=== PATIENT | female | born 1950 | race African-American/Black ===

== ENCOUNTER 2017-07-23 11:19 | Inpatient (IN) ==
[2017-07-23 12:08] LABS: Basophils # 0.1 10*3/uL (0.0-0.2); Basophils % 1.4 % (0.0-0.8); Eosinophils # 0.1 10*3/uL (0.0-0.87); Hematocrit 40.2 VOL% (35.7-47.0); Immature Granulocytes % 0.2 %; Immature Granulocytes Absolute 0.01 #; Lymphocytes # 0.8 10*3/uL (1.4-4.0); Lymphocytes % 15.3 % (21.3-54.2); Mean Corpuscular HGB Conc 32.3 GM/DL (32-36); Mean Corpuscular Hemoglobin 30 PG (27-34); Mean Corpuscular Volume 93.9 FL (87-102); Mean Platelet Volume 12.9 FL (9.6-12.0); Monocytes # 0.4 10*3/uL (0.11-0.8); Neutrophils # 3.7 10*3/uL (1.4-7.4); Neutrophils % 74.1 % (38.7-73.9); Platelet Count 166 T/CUMM (130-400); Red Blood Count 4.28 MC/CUMM (3.8-5.5); Red Cell Distribution Width 15.5 % (9.3-17.3)
[2017-07-23 12:13] LABS: PT Patient Result 10.5 SECS; Partial Thromboplastin Time 21.4 SECS (0-40)
[2017-07-23 12:32] LABS: Alanine Aminotransferase 13 U/L (13-56); Albumin 3.8 G/DL (3.4-5.0); Alkaline Phosphatase 101 U/L (45-117); Aspartate Amino Transferase 28 U/L (0-37); Blood Urea Nitrogen 10 MG/DL (7-18); Calcium 9.9 MG/DL (8.5-10.1); Glucose 74 MG/DL (74-106); Osmolality,Calculated 265.2 MOS/KG (273-304); Sodium 134 MMOL/L (136-145); Total Protein 9.7 G/DL (6.4-8.3); Troponin I Only 0.022 NG/ML (0.00-0.045)
[2017-07-23 12:36] LABS: Potassium 3.9 MMOL/L (3.5-5.1)
[2017-07-23] MEDS ORDERED: DEXTROSE 50% 25 GM/50 ML VIAL IV PRN (15:59)
[2017-07-23] MEDS ORDERED: GLUCAGON 1 MG VIAL IM PRN (15:59)
[2017-07-23] MEDS: SEVELAMER CARBONATE 800 MG TABLET PO SCH (17:49)
[2017-07-23] MEDS: CALCIUM ACETATE 667 MG CAPSULE PO SCH (17:49)
[2017-07-23] MEDS: METOCLOPRAMIDE 5 MG TABLET PO SCH (21:40)
[2017-07-24] MEDS ORDERED: CALCIUM ACETATE 667 MG CAPSULE PO SCH (08:00)
[2017-07-24] MEDS ORDERED: SEVELAMER CARBONATE 800 MG TABLET PO SCH (08:00)
[2017-07-24] MEDS: METOCLOPRAMIDE 5 MG TABLET PO SCH ×4 (08:33→20:48)
[2017-07-24] MEDS: IRBESARTAN 150 MG TABLET PO SCH ×2 (08:33→12:41)
[2017-07-24] MEDS: CALCIUM ACETATE 667 MG CAPSULE PO SCH ×3 (08:33→17:08)
[2017-07-24] MEDS: SEVELAMER CARBONATE 800 MG TABLET PO SCH ×3 (08:33→17:08)
[2017-07-24] MEDS: ASPIRIN EC 81 MG TABLET PO SCH ×2 (08:33→12:43)
[2017-07-24] MEDS: amLODIPine 5 MG TABLET PO SCH ×2 (08:34→12:42)
[2017-07-24] MEDS: GABAPENTIN 100 MG CAPSULE PO SCH ×2 (08:34→12:42)
[2017-07-24 11:29] LABS: Basophils # 0.1 10*3/uL (0.0-0.2); Eosinophils % 0.8 % (0.00-10.9); Hematocrit 36.4 VOL% (35.7-47.0); Hemoglobin 11.5 GM/DL (12.0-16.0); Immature Granulocytes % 0.2 %; Immature Granulocytes Absolute 0.01 #; Lymphocytes # 0.8 10*3/uL (1.4-4.0); Lymphocytes % 17.1 % (21.3-54.2); Mean Corpuscular HGB Conc 31.6 GM/DL (32-36); Mean Corpuscular Hemoglobin 30 PG (27-34); Mean Corpuscular Volume 95.5 FL (87-102); Mean Platelet Volume 11.4 FL (9.6-12.0); Monocytes # 0.5 10*3/uL (0.11-0.8); Monocytes % 9.5 % (1.7-12.7); Neutrophils # 3.5 10*3/uL (1.4-7.4); Neutrophils % 71.4 % (38.7-73.9); Platelet Count 178 T/CUMM (130-400); Red Blood Count 3.81 MC/CUMM (3.8-5.5); Red Cell Distribution Width 15.7 % (9.3-17.3); White Blood Count 4.8 T/CUMM (4-12)
[2017-07-24 12:08] LABS: Albumin 3.6 G/DL (3.4-5.0); Bilirubin,Total 0.4 MG/DL (0.2-1.0); Total Protein 8.2 G/DL (6.4-8.3)
[2017-07-24 12:35] LABS: Free T4 (Free Thyroxine) 1.27 NG/DL (0.76-1.46); Thyroid Stimulating Hormone 1.13 uIU/ml (0.358-3.74)
[2017-07-24] MEDS ORDERED: diphenhydrAMINE CAP 25 MG CAPSULE PO ONE (16:57)
[2017-07-24] MEDS ORDERED: ceFAZolin 1,000 MG VIAL IRRIG ONE (16:57)
[2017-07-24] MEDS ORDERED: DIAZEPAM 5 MG TABLET PO ONE (16:57)
[2017-07-24] MEDS: ATORVASTATIN 40 MG TABLET PO SCH (20:48)
[2017-07-24] MEDS: MELATONIN 3 MG TABLET PO SCH (20:48)
[2017-07-25 04:57] LABS: Basophils # 0.1 10*3/uL (0.0-0.2); Basophils % 1.2 % (0.0-0.8); Eosinophils # 0.1 10*3/uL (0.0-0.87); Eosinophils % 1.6 % (0.00-10.9); Hematocrit 35.3 VOL% (35.7-47.0); Hemoglobin 10.9 GM/DL (12.0-16.0); Immature Granulocytes % 0.2 %; Immature Granulocytes Absolute 0.01 #; Lymphocytes # 1.1 10*3/uL (1.4-4.0); Lymphocytes % 20.6 % (21.3-54.2); Mean Corpuscular HGB Conc 30.9 GM/DL (32-36); Mean Corpuscular Hemoglobin 30 PG (27-34); Mean Corpuscular Volume 97.2 FL (87-102); Mean Platelet Volume 11.7 FL (9.6-12.0); Monocytes # 0.6 10*3/uL (0.11-0.8); Monocytes % 11.6 % (1.7-12.7); Neutrophils # 3.3 10*3/uL (1.4-7.4); Neutrophils % 64.8 % (38.7-73.9); Platelet Count 180 T/CUMM (130-400); Red Blood Count 3.63 MC/CUMM (3.8-5.5); Red Cell Distribution Width 15.7 % (9.3-17.3); White Blood Count 5.1 T/CUMM (4-12)
[2017-07-25 05:29] LABS: Calcium 9.9 MG/DL (8.5-10.1); Magnesium 2.6 MG/DL (1.8-2.4); Osmolality,Calculated 278.8 MOS/KG (273-304); Potassium 4.2 MMOL/L (3.5-5.1)
[2017-07-25 05:47] LABS: Risk Ratio 4.11; VLDL CHOLESTEROL 21.2 MG/DL
[2017-07-25] MEDS ORDERED: diphenhydrAMINE CAP 25 MG CAPSULE PO ONE (07:00)
[2017-07-25] MEDS ORDERED: DIAZEPAM 5 MG TABLET PO ONE (07:00)
[2017-07-25] MEDS ORDERED: ceFAZolin 1,000 MG in SYRINGE 1 EACH IV ONE (07:00)
[2017-07-25] MEDS ORDERED: ceFAZolin 1,000 MG VIAL IRRIG ONE (07:00)
[2017-07-25] MEDS: amLODIPine 5 MG TABLET PO SCH ×2 (07:36→08:34)
[2017-07-25] MEDS: METOCLOPRAMIDE 5 MG TABLET PO SCH ×4 (07:50→20:48)
[2017-07-25] MEDS: SEVELAMER CARBONATE 800 MG TABLET PO SCH ×3 (07:50→16:40)
[2017-07-25] MEDS: CALCIUM ACETATE 667 MG CAPSULE PO SCH ×3 (07:50→16:40)
[2017-07-25] MEDS ORDERED: ceFAZolin 1,000 MG VIAL ONE (08:18)
[2017-07-25] MEDS ORDERED: LIDOCAINE 1% 20 ML VIAL ONE (08:18)
[2017-07-25] MEDS ORDERED: MIDAZOLAM 2 MG/2 ML VIAL ONE (08:24)
[2017-07-25] MEDS ORDERED: fentaNYL 100 MCG/2 ML VIAL ONE (08:25)
[2017-07-25] MEDS: GABAPENTIN 100 MG CAPSULE PO SCH (08:33)
[2017-07-25] MEDS: IRBESARTAN 150 MG TABLET PO SCH (08:33)
[2017-07-25] MEDS: ASPIRIN EC 81 MG TABLET PO SCH (08:33)
[2017-07-25] MEDS ORDERED: diphenhydrAMINE 50 MG/1 ML VIAL ONE (09:15)
[2017-07-25] MEDS ORDERED: TISSUE ADHESIVE 1 EACH APPLICATOR TOP ONE (09:35)
[2017-07-25] MEDS ORDERED: GLUCAGON 1 MG VIAL IM PRN (10:45)
[2017-07-25] MEDS ORDERED: DEXTROSE 50% 25 GM/50 ML VIAL IV PRN (10:45)
[2017-07-25] MEDS: ATORVASTATIN 40 MG TABLET PO SCH (20:48)
[2017-07-25] MEDS: MELATONIN 3 MG TABLET PO SCH (20:48)
[2017-07-26 04:55] LABS: Basophils % 0.7 % (0.0-0.8); Eosinophils # 0.1 10*3/uL (0.0-0.87); Eosinophils % 0.8 % (0.00-10.9); Hematocrit 33.4 VOL% (35.7-47.0); Hemoglobin 10.5 GM/DL (12.0-16.0); Immature Granulocytes % 0.3 %; Immature Granulocytes Absolute 0.02 #; Lymphocytes % 15.5 % (21.3-54.2); Mean Corpuscular HGB Conc 31.4 GM/DL (32-36); Mean Corpuscular Hemoglobin 30 PG (27-34); Mean Corpuscular Volume 96.8 FL (87-102); Monocytes # 0.7 10*3/uL (0.11-0.8); Monocytes % 11.1 % (1.7-12.7); Neutrophils # 4.4 10*3/uL (1.4-7.4); Neutrophils % 71.6 % (38.7-73.9); Platelet Count 178 T/CUMM (130-400); Red Blood Count 3.45 MC/CUMM (3.8-5.5); Red Cell Distribution Width 15.8 % (9.3-17.3); White Blood Count 6.1 T/CUMM (4-12)
[2017-07-26 05:33] LABS: Calcium 9.3 MG/DL (8.5-10.1); Magnesium 2.4 MG/DL (1.8-2.4); Osmolality,Calculated 274.8 MOS/KG (273-304); Potassium 4.2 MMOL/L (3.5-5.1)
[2017-07-26] MEDS: GABAPENTIN 100 MG CAPSULE PO SCH (08:53)
[2017-07-26] MEDS: CALCIUM ACETATE 667 MG CAPSULE PO SCH ×2 (08:53→12:04)
[2017-07-26] MEDS: ASPIRIN EC 81 MG TABLET PO SCH (08:53)
[2017-07-26] MEDS: METOCLOPRAMIDE 5 MG TABLET PO SCH ×2 (08:53→12:02)
[2017-07-26] MEDS: SEVELAMER CARBONATE 800 MG TABLET PO SCH ×2 (08:54→12:04)
[2017-07-26 12:18] VITALS: BP 134/58
[2017-07-26] MEDS: IRBESARTAN 150 MG TABLET PO SCH (14:33)
[2017-07-26] MEDS: amLODIPine 5 MG TABLET PO SCH (14:33)
== END 2017-07-26 14:40 | disposition home or self-care (01) | DRG 242 ==
LOC: EDUNIT# → EDBD → N.ED 11:19 → N.EDINP 11:19 → N.TELEN 14:50
PROVIDERS: ADMIT Hospitalist; ATTEND Hospitalist

== ENCOUNTER 2022-08-01 09:56 | Inpatient (IN) ==
[2022-08-01] MEDS ORDERED: SODIUM CHLORIDE 0.9% 250 ML IV STA (10:25)
[2022-08-01 10:49] LABS: Basophils # 0.1 10*3/uL (0.0-0.2); Basophils % 0.5 % (0.0-0.8); Eosinophils % 0.1 % (0.00-10.9); Hematocrit 36.9 VOL% (35.7-47.0); Hemoglobin 11.4 GM/DL (12.0-16.0); Immature Granulocytes % 0.6 %; Immature Granulocytes Absolute 0.07 #; Lymphocytes # 0.8 10*3/uL (1.4-4.0); Lymphocytes % 7.3 % (21.3-54.2); Mean Corpuscular HGB Conc 30.9 GM/DL (32-36); Mean Corpuscular Volume 97.9 FL (87-102); Mean Platelet Volume 11.7 FL (9.6-12.0); Monocytes # 0.6 10*3/uL (0.11-0.8); Monocytes % 5.4 % (1.7-12.7); Neutrophils % 86.1 % (38.7-73.9); Platelet Count 245 T/CUMM (130-400); Red Blood Count 3.77 MC/CUMM (3.8-5.5); Red Cell Distribution Width 15.6 % (9.3-17.3); White Blood Count 11.1 T/CUMM (4-12)
[2022-08-01 11:10] LABS: Albumin 2.8 G/DL (3.4-5.0); Bilirubin,Total 0.4 MG/DL (0.20-1.00); Calcium 8.5 MG/DL (8.5-10.1); Osmolality,Calculated 275.1 MOS/KG (273-304); Potassium 4.1 MMOL/L (3.5-5.1); Total Protein 8.7 G/DL (6.4-8.2)
[2022-08-01 12:04] LABS: Platelet Estimate Normal
[2022-08-01] MEDS ORDERED: ACETAMINOPHEN 325 MG TABLET PO PRN (13:04)
[2022-08-01] MEDS ORDERED: hydrALAZINE 20 MG/1 ML VIAL IV PRN (13:04)
[2022-08-01] MEDS ORDERED: ONDANSETRON 4 MG/2 ML VIAL IV PRN (13:04)
[2022-08-01] MEDS ORDERED: ALBUTEROL 2.5 MG/3 ML NEB RESP TX PRN (13:04)
[2022-08-01] MEDS: HEPARIN 5,000 UNIT/1 ML VIAL SUBCUT SCH (14:45)
[2022-08-01] MEDS: cefTRIAXone 1,000 MG in SODIUM CHLORIDE 0.9% 100 ML IV SCH (14:50)
[2022-08-01] MEDS: AZITHROMYCIN INJ 500 MG in SODIUM CHLORIDE 0.9% 250 ML IV SCH (15:30)
[2022-08-01] MEDS ORDERED: GLUCAGON 1 MG VIAL IM PRN (16:08)
[2022-08-01] MEDS ORDERED: DEXTROSE 10% 250 ML BAG IV PRN (16:08)
[2022-08-01] MEDS: INSULIN REGULAR 100 UNIT/ML SUBCUT SCH ×2 (17:58→21:19)
[2022-08-01] MEDS: SEVELAMER CARBONATE 800 MG TABLET PO SCH (18:40)
[2022-08-01] MEDS: ALBUTEROL/IPRATROPIUM 3 ML NEB RESP TX SCH (20:07)
[2022-08-01] MEDS: GABAPENTIN 100 MG CAPSULE PO SCH (21:18)
[2022-08-01] MEDS: ASCORBIC ACID 500 MG TABLET PO SCH (21:18)
[2022-08-01] MEDS: DOCUSATE SODIUM 100 MG CAPSULE PO SCH (21:18)
[2022-08-02] MEDS: ALBUTEROL/IPRATROPIUM 3 ML NEB RESP TX SCH ×4 (00:08→19:06)
[2022-08-02] MEDS: HEPARIN 5,000 UNIT/1 ML VIAL SUBCUT SCH ×2 (01:09→21:21)
[2022-08-02 05:48] LABS: Basophils % 0.5 % (0.0-0.8); Eosinophils % 0.2 % (0.00-10.9); Hematocrit 30.2 VOL% (35.7-47.0); Hemoglobin 9.2 GM/DL (12.0-16.0); Immature Granulocytes % 0.8 %; Immature Granulocytes Absolute 0.05 #; Lymphocytes # 1.1 10*3/uL (1.4-4.0); Lymphocytes % 17.7 % (21.3-54.2); Mean Corpuscular HGB Conc 30.5 GM/DL (32-36); Mean Platelet Volume 11.3 FL (9.6-12.0); Monocytes # 0.5 10*3/uL (0.11-0.8); Monocytes % 8.2 % (1.7-12.7); Neutrophils % 72.6 % (38.7-73.9); Platelet Count 191 T/CUMM (130-400); Red Blood Count 3.05 MC/CUMM (3.8-5.5); Red Cell Distribution Width 15.8 % (9.3-17.3)
[2022-08-02 06:19] LABS: Calcium 8.4 MG/DL (8.5-10.1); Osmolality,Calculated 282.7 MOS/KG (273-304); Potassium 4.4 MMOL/L (3.5-5.1); Risk Ratio 4.39; Thyroid Stimulating Hormone 0.717 uIU/ml (0.358-3.74); VLDL Cholesterol 22.2 MG/DL
[2022-08-02 06:28] LABS: Ferritin 3310.8 ng/mL (8-252)
[2022-08-02] MEDS ORDERED: REMDESIVIR 200 MG in SODIUM CHLORIDE 0.9% 210 ML IV ONE (08:49)
[2022-08-02] MEDS: INSULIN REGULAR 100 UNIT/ML SUBCUT SCH ×4 (09:20→22:56)
[2022-08-02] MEDS: LOSARTAN 50 MG TABLET PO SCH (10:08)
[2022-08-02] MEDS: DOCUSATE SODIUM 100 MG CAPSULE PO SCH ×2 (10:08→21:21)
[2022-08-02] MEDS: METOCLOPRAMIDE 5 MG TABLET PO SCH (10:08)
[2022-08-02] MEDS: ASPIRIN EC 81 MG TABLET PO SCH (10:08)
[2022-08-02] MEDS: ASCORBIC ACID 500 MG TABLET PO SCH ×2 (10:08→21:21)
[2022-08-02] MEDS: SEVELAMER CARBONATE 800 MG TABLET PO SCH ×3 (10:08→17:10)
[2022-08-02] MEDS: PANTOPRAZOLE 40 MG TABLET PO SCH (10:09)
[2022-08-02] MEDS: CHOLECALCIFEROL 1,000 UNIT TABLET PO SCH (10:09)
[2022-08-02] MEDS: MIDODRINE 5 MG TABLET PO SCH (10:09)
[2022-08-02] MEDS: ZINC GLUCONATE 50 MG TABLET PO SCH (10:09)
[2022-08-02] MEDS: CETIRIZINE 10 MG TABLET PO SCH (10:09)
[2022-08-02] MEDS: DEXAMETHASONE 4 MG/1 ML VIAL IV SCH (10:10)
[2022-08-02] MEDS: cefTRIAXone 1,000 MG in SODIUM CHLORIDE 0.9% 100 ML IV SCH (12:48)
[2022-08-02] MEDS: AZITHROMYCIN INJ 500 MG in SODIUM CHLORIDE 0.9% 250 ML IV SCH (15:30)
[2022-08-02] MEDS: BENZONATATE 100 MG CAPSULE PO PRN (15:32)
[2022-08-02] MEDS: GABAPENTIN 100 MG CAPSULE PO SCH (21:21)
[2022-08-03] MEDS: ALBUTEROL/IPRATROPIUM 3 ML NEB RESP TX SCH ×4 (00:14→19:07)
[2022-08-03 06:00] LABS: Basophils % 0.2 % (0.0-0.8); Hematocrit 31.7 VOL% (35.7-47.0); Hemoglobin 9.7 GM/DL (12.0-16.0); Immature Granulocytes % 1.1 %; Immature Granulocytes Absolute 0.06 #; Lymphocytes # 0.8 10*3/uL (1.4-4.0); Lymphocytes % 13.5 % (21.3-54.2); Mean Corpuscular HGB Conc 30.6 GM/DL (32-36); Mean Corpuscular Volume 98.4 FL (87-102); Mean Platelet Volume 11.4 FL (9.6-12.0); Monocytes # 0.4 10*3/uL (0.11-0.8); Monocytes % 7.3 % (1.7-12.7); Neutrophils % 77.9 % (38.7-73.9); Platelet Count 211 T/CUMM (130-400); Red Blood Count 3.22 MC/CUMM (3.8-5.5); Red Cell Distribution Width 15.3 % (9.3-17.3); White Blood Count 5.6 T/CUMM (4-12)
[2022-08-03 06:21] LABS: Calcium 9.4 MG/DL (8.5-10.1); Osmolality,Calculated 292.5 MOS/KG (273-304); Potassium 5.2 MMOL/L (3.5-5.1)
[2022-08-03] MEDS ORDERED: REMDESIVIR 100 MG in SODIUM CHLORIDE 0.9% 100 ML IV SCH (09:00)
[2022-08-03] MEDS: INSULIN REGULAR 100 UNIT/ML SUBCUT SCH ×4 (09:55→22:50)
[2022-08-03] MEDS: HEPARIN 5,000 UNIT/1 ML VIAL SUBCUT SCH ×2 (09:56→22:49)
[2022-08-03] MEDS: CHOLECALCIFEROL 1,000 UNIT TABLET PO SCH (09:57)
[2022-08-03] MEDS: ASPIRIN EC 81 MG TABLET PO SCH (09:57)
[2022-08-03] MEDS: ASCORBIC ACID 500 MG TABLET PO SCH ×2 (09:57→22:50)
[2022-08-03] MEDS: CETIRIZINE 10 MG TABLET PO SCH (09:57)
[2022-08-03] MEDS: ZINC GLUCONATE 50 MG TABLET PO SCH (09:58)
[2022-08-03] MEDS: METOCLOPRAMIDE 5 MG TABLET PO SCH (09:58)
[2022-08-03] MEDS: PANTOPRAZOLE 40 MG TABLET PO SCH (09:58)
[2022-08-03] MEDS: SEVELAMER CARBONATE 800 MG TABLET PO SCH ×3 (09:59→16:03)
[2022-08-03] MEDS: LOSARTAN 50 MG TABLET PO SCH (10:01)
[2022-08-03] MEDS: DOCUSATE SODIUM 100 MG CAPSULE PO SCH ×2 (10:01→22:50)
[2022-08-03] MEDS: MIDODRINE 5 MG TABLET PO SCH (10:01)
[2022-08-03] MEDS: DEXAMETHASONE 4 MG/1 ML VIAL IV SCH (10:02)
[2022-08-03] MEDS: cefTRIAXone 1,000 MG in SODIUM CHLORIDE 0.9% 100 ML IV SCH (10:05)
[2022-08-03] MEDS: AZITHROMYCIN 250 MG TABLET PO SCH (10:57)
[2022-08-03] MEDS ORDERED: SODIUM POLYSTYRENE SULFATE 15 GM/60 ML BOTTLE PO ONE (13:23)
[2022-08-03] MEDS: GABAPENTIN 100 MG CAPSULE PO SCH (22:50)
[2022-08-04] MEDS: ALBUTEROL/IPRATROPIUM 3 ML NEB RESP TX SCH ×4 (00:09→18:50)
[2022-08-04 05:59] LABS: Basophils % 0.3 % (0.0-0.8); Hematocrit 32.5 VOL% (35.7-47.0); Hemoglobin 9.8 GM/DL (12.0-16.0); Immature Granulocytes % 1.5 %; Immature Granulocytes Absolute 0.12 #; Lymphocytes # 1.1 10*3/uL (1.4-4.0); Lymphocytes % 13.8 % (21.3-54.2); Mean Corpuscular HGB Conc 30.2 GM/DL (32-36); Mean Corpuscular Volume 99.7 FL (87-102); Mean Platelet Volume 11.5 FL (9.6-12.0); Monocytes # 0.4 10*3/uL (0.11-0.8); Neutrophils % 79.4 % (38.7-73.9); Platelet Count 211 T/CUMM (130-400); Red Blood Count 3.26 MC/CUMM (3.8-5.5); Red Cell Distribution Width 15.6 % (9.3-17.3); White Blood Count 7.8 T/CUMM (4-12)
[2022-08-04 06:23] LABS: Calcium 9.2 MG/DL (8.5-10.1); Osmolality,Calculated 285.4 MOS/KG (273-304); Potassium 4.7 MMOL/L (3.5-5.1)
[2022-08-04] MEDS: INSULIN REGULAR 100 UNIT/ML SUBCUT SCH ×4 (10:13→20:59)
[2022-08-04] MEDS: MIDODRINE 5 MG TABLET PO SCH (10:15)
[2022-08-04] MEDS: ASCORBIC ACID 500 MG TABLET PO SCH ×2 (10:15→21:00)
[2022-08-04] MEDS: ASPIRIN EC 81 MG TABLET PO SCH (10:16)
[2022-08-04] MEDS: AZITHROMYCIN 250 MG TABLET PO SCH (10:16)
[2022-08-04] MEDS: SEVELAMER CARBONATE 800 MG TABLET PO SCH ×3 (10:16→16:06)
[2022-08-04] MEDS: ZINC GLUCONATE 50 MG TABLET PO SCH (10:16)
[2022-08-04] MEDS: PANTOPRAZOLE 40 MG TABLET PO SCH (10:16)
[2022-08-04] MEDS: CHOLECALCIFEROL 1,000 UNIT TABLET PO SCH (10:16)
[2022-08-04] MEDS: CETIRIZINE 10 MG TABLET PO SCH (10:17)
[2022-08-04] MEDS: LOSARTAN 50 MG TABLET PO SCH (10:17)
[2022-08-04] MEDS: DOCUSATE SODIUM 100 MG CAPSULE PO SCH ×2 (10:17→21:00)
[2022-08-04] MEDS: METOCLOPRAMIDE 5 MG TABLET PO SCH (10:17)
[2022-08-04] MEDS: cefTRIAXone 1,000 MG in SODIUM CHLORIDE 0.9% 100 ML IV SCH (10:23)
[2022-08-04] MEDS: DEXAMETHASONE 4 MG/1 ML VIAL IV SCH (10:23)
[2022-08-04] MEDS: HEPARIN 5,000 UNIT/1 ML VIAL SUBCUT SCH ×2 (10:28→20:59)
[2022-08-04] MEDS: GABAPENTIN 100 MG CAPSULE PO SCH (21:00)
[2022-08-05] MEDS: ALBUTEROL/IPRATROPIUM 3 ML NEB RESP TX SCH ×4 (01:56→19:00)
[2022-08-05 04:54] LABS: Basophils % 0.2 % (0.0-0.8); Hematocrit 29.2 VOL% (35.7-47.0); Hemoglobin 9.1 GM/DL (12.0-16.0); Immature Granulocytes % 3.3 %; Lymphocytes % 15.8 % (21.3-54.2); Mean Corpuscular HGB Conc 31.2 GM/DL (32-36); Mean Corpuscular Volume 98.3 FL (87-102); Monocytes # 0.4 10*3/uL (0.11-0.8); Monocytes % 7.3 % (1.7-12.7); Neutrophils % 73.4 % (38.7-73.9); Platelet Count 206 T/CUMM (130-400); Red Blood Count 2.97 MC/CUMM (3.8-5.5); Red Cell Distribution Width 15.3 % (9.3-17.3)
[2022-08-05 05:15] LABS: Calcium 8.8 MG/DL (8.5-10.1); Osmolality,Calculated 293.3 MOS/KG (273-304); Potassium 4.9 MMOL/L (3.5-5.1)
[2022-08-05] MEDS: INSULIN REGULAR 100 UNIT/ML SUBCUT SCH ×4 (08:33→20:56)
[2022-08-05] MEDS: METOCLOPRAMIDE 5 MG TABLET PO SCH (09:48)
[2022-08-05] MEDS: AZITHROMYCIN 250 MG TABLET PO SCH (09:49)
[2022-08-05] MEDS: ASPIRIN EC 81 MG TABLET PO SCH (09:49)
[2022-08-05] MEDS: ASCORBIC ACID 500 MG TABLET PO SCH ×2 (09:49→21:02)
[2022-08-05] MEDS: ZINC GLUCONATE 50 MG TABLET PO SCH (09:49)
[2022-08-05] MEDS: SEVELAMER CARBONATE 800 MG TABLET PO SCH ×3 (09:49→17:52)
[2022-08-05] MEDS: DOCUSATE SODIUM 100 MG CAPSULE PO SCH ×2 (09:49→20:58)
[2022-08-05] MEDS: CEFUROXIME 250 MG TABLET PO SCH (09:50)
[2022-08-05] MEDS: MIDODRINE 5 MG TABLET PO SCH (09:50)
[2022-08-05] MEDS: CETIRIZINE 10 MG TABLET PO SCH (09:50)
[2022-08-05] MEDS: CHOLECALCIFEROL 1,000 UNIT TABLET PO SCH (09:50)
[2022-08-05] MEDS: LOSARTAN 50 MG TABLET PO SCH (09:50)
[2022-08-05] MEDS: PANTOPRAZOLE 40 MG TABLET PO SCH (09:50)
[2022-08-05] MEDS: HEPARIN 5,000 UNIT/1 ML VIAL SUBCUT SCH ×2 (09:50→20:58)
[2022-08-05] MEDS: DEXAMETHASONE 4 MG/1 ML VIAL IV SCH (09:53)
[2022-08-05] MEDS: GABAPENTIN 100 MG CAPSULE PO SCH (20:58)
[2022-08-06] MEDS: ALBUTEROL/IPRATROPIUM 3 ML NEB RESP TX SCH ×4 (00:03→19:19)
[2022-08-06] MEDS: INSULIN REGULAR 100 UNIT/ML SUBCUT SCH ×4 (07:46→21:13)
[2022-08-06 08:33] LABS: Basophils % 0.3 % (0.0-0.8); Eosinophils % 0.5 % (0.00-10.9); Hematocrit 32.1 VOL% (35.7-47.0); Hemoglobin 9.8 GM/DL (12.0-16.0); Immature Granulocytes % 3.3 %; Immature Granulocytes Absolute 0.26 #; Lymphocytes # 1.3 10*3/uL (1.4-4.0); Lymphocytes % 16.9 % (21.3-54.2); Mean Corpuscular HGB Conc 30.5 GM/DL (32-36); Mean Corpuscular Volume 98.5 FL (87-102); Mean Platelet Volume 10.6 FL (9.6-12.0); Monocytes # 0.4 10*3/uL (0.11-0.8); Monocytes % 4.8 % (1.7-12.7); Neutrophils % 74.2 % (38.7-73.9); Platelet Count 202 T/CUMM (130-400); Red Blood Count 3.26 MC/CUMM (3.8-5.5); Red Cell Distribution Width 15.4 % (9.3-17.3); White Blood Count 7.9 T/CUMM (4-12)
[2022-08-06 08:56] LABS: Alanine Aminotransferase 40 U/L (13-56); Albumin 2.8 G/DL (3.4-5.0); Alkaline Phosphatase 51 U/L (45-117); Aspartate Amino Transferase 23 U/L (0-37); Bilirubin,Total < 0.39 MG/DL (0.20-1.00); Blood Urea Nitrogen 34 MG/DL (7-18); Calcium 9.2 MG/DL (8.5-10.1); Carbon Dioxide 31 MMOL/L (21-32); Chloride 99 MMOL/L (98-107); Glucose 127 MG/DL (74-106); Sodium 136 MMOL/L (136-145); Total Protein 7.6 G/DL (6.4-8.2)
[2022-08-06] MEDS: CEFUROXIME 250 MG TABLET PO SCH (09:34)
[2022-08-06] MEDS: MIDODRINE 5 MG TABLET PO SCH (09:34)
[2022-08-06] MEDS: CHOLECALCIFEROL 1,000 UNIT TABLET PO SCH (09:34)
[2022-08-06] MEDS: CETIRIZINE 10 MG TABLET PO SCH (09:34)
[2022-08-06] MEDS: ZINC GLUCONATE 50 MG TABLET PO SCH (09:34)
[2022-08-06] MEDS: SEVELAMER CARBONATE 800 MG TABLET PO SCH ×3 (09:34→16:06)
[2022-08-06] MEDS: METOCLOPRAMIDE 5 MG TABLET PO SCH (09:35)
[2022-08-06] MEDS: ASCORBIC ACID 500 MG TABLET PO SCH ×2 (09:35→21:13)
[2022-08-06] MEDS: LOSARTAN 50 MG TABLET PO SCH (09:35)
[2022-08-06] MEDS: DOCUSATE SODIUM 100 MG CAPSULE PO SCH ×2 (09:35→21:13)
[2022-08-06] MEDS: ASPIRIN EC 81 MG TABLET PO SCH (09:35)
[2022-08-06] MEDS: PANTOPRAZOLE 40 MG TABLET PO SCH (09:35)
[2022-08-06] MEDS: BENZONATATE 100 MG CAPSULE PO PRN (09:35)
[2022-08-06] MEDS: DEXAMETHASONE 4 MG/1 ML VIAL IV SCH (09:40)
[2022-08-06] MEDS: HEPARIN 5,000 UNIT/1 ML VIAL SUBCUT SCH ×2 (09:40→21:13)
[2022-08-06] MEDS: GABAPENTIN 100 MG CAPSULE PO SCH (21:13)
[2022-08-07] MEDS: ALBUTEROL/IPRATROPIUM 3 ML NEB RESP TX SCH ×4 (00:46→19:45)
[2022-08-07 06:43] LABS: Basophils % 0.2 % (0.0-0.8); Eosinophils % 0.4 % (0.00-10.9); Hematocrit 29.2 VOL% (35.7-47.0); Immature Granulocytes % 3.4 %; Immature Granulocytes Absolute 0.32 #; Lymphocytes # 1.2 10*3/uL (1.4-4.0); Lymphocytes % 12.4 % (21.3-54.2); Mean Corpuscular HGB Conc 30.8 GM/DL (32-36); Mean Corpuscular Volume 98.6 FL (87-102); Mean Platelet Volume 11.1 FL (9.6-12.0); Monocytes # 0.5 10*3/uL (0.11-0.8); Monocytes % 4.8 % (1.7-12.7); Neutrophils % 78.8 % (38.7-73.9); Platelet Count 178 T/CUMM (130-400); Red Blood Count 2.96 MC/CUMM (3.8-5.5); Red Cell Distribution Width 15.5 % (9.3-17.3); White Blood Count 9.4 T/CUMM (4-12)
[2022-08-07 07:17] LABS: Alanine Aminotransferase 38 U/L (13-56); Albumin 2.7 G/DL (3.4-5.0); Alkaline Phosphatase 46 U/L (45-117); Aspartate Amino Transferase 15 U/L (0-37); Bilirubin,Total < 0.39 MG/DL (0.20-1.00); Blood Urea Nitrogen 51 MG/DL (7-18); Calcium 9.2 MG/DL (8.5-10.1); Carbon Dioxide 30 MMOL/L (21-32); Chloride 101 MMOL/L (98-107); Glucose 108 MG/DL (74-106); Osmolality,Calculated 291.5 MOS/KG (273-304); Potassium 4.5 MMOL/L (3.5-5.1); Sodium 139 MMOL/L (136-145)
[2022-08-07] MEDS: INSULIN REGULAR 100 UNIT/ML SUBCUT SCH ×4 (07:45→21:06)
[2022-08-07] MEDS: CEFUROXIME 250 MG TABLET PO SCH (10:41)
[2022-08-07] MEDS: LOSARTAN 50 MG TABLET PO SCH (10:41)
[2022-08-07] MEDS: METOCLOPRAMIDE 5 MG TABLET PO SCH (10:41)
[2022-08-07] MEDS: CETIRIZINE 10 MG TABLET PO SCH (10:41)
[2022-08-07] MEDS: ASPIRIN EC 81 MG TABLET PO SCH (10:41)
[2022-08-07] MEDS: PANTOPRAZOLE 40 MG TABLET PO SCH (10:42)
[2022-08-07] MEDS: ASCORBIC ACID 500 MG TABLET PO SCH ×2 (10:42→21:05)
[2022-08-07] MEDS: MIDODRINE 5 MG TABLET PO SCH (10:42)
[2022-08-07] MEDS: CHOLECALCIFEROL 1,000 UNIT TABLET PO SCH (10:42)
[2022-08-07] MEDS: DOCUSATE SODIUM 100 MG CAPSULE PO SCH ×2 (10:42→21:05)
[2022-08-07] MEDS: SEVELAMER CARBONATE 800 MG TABLET PO SCH ×3 (10:42→16:48)
[2022-08-07] MEDS: DEXAMETHASONE 4 MG/1 ML VIAL IV SCH (10:43)
[2022-08-07] MEDS: HEPARIN 5,000 UNIT/1 ML VIAL SUBCUT SCH ×2 (10:43→21:06)
[2022-08-07] MEDS: ZINC GLUCONATE 50 MG TABLET PO SCH (10:43)
[2022-08-07] MEDS ORDERED: CEFUROXIME 250 MG TABLET PO SCH (11:00)
[2022-08-07] MEDS: GABAPENTIN 100 MG CAPSULE PO SCH (21:05)
[2022-08-08] MEDS: ALBUTEROL/IPRATROPIUM 3 ML NEB RESP TX SCH ×3 (00:38→13:00)
[2022-08-08 05:09] LABS: Basophils % 0.2 % (0.0-0.8); Eosinophils # 0.1 10*3/uL (0.0-0.87); Eosinophils % 0.4 % (0.00-10.9); Hematocrit 29.2 VOL% (35.7-47.0); Hemoglobin 8.9 GM/DL (12.0-16.0); Immature Granulocytes % 2.9 %; Immature Granulocytes Absolute 0.32 #; Lymphocytes # 1.2 10*3/uL (1.4-4.0); Lymphocytes % 10.5 % (21.3-54.2); Mean Corpuscular HGB Conc 30.5 GM/DL (32-36); Mean Corpuscular Volume 97.7 FL (87-102); Mean Platelet Volume 11.1 FL (9.6-12.0); Monocytes # 0.5 10*3/uL (0.11-0.8); Monocytes % 4.5 % (1.7-12.7); Neutrophils % 81.5 % (38.7-73.9); Platelet Count 181 T/CUMM (130-400); Red Blood Count 2.99 MC/CUMM (3.8-5.5); Red Cell Distribution Width 15.4 % (9.3-17.3); White Blood Count 11.2 T/CUMM (4-12)
[2022-08-08 05:32] LABS: Lymphocytes 11 % (20-55); Total Cells Counted 100
[2022-08-08 05:33] LABS: Platelet Estimate Adequate
[2022-08-08 05:42] LABS: Alanine Aminotransferase 32 U/L (13-56); Albumin 2.7 G/DL (3.4-5.0); Alkaline Phosphatase 48 U/L (45-117); Aspartate Amino Transferase 12 U/L (0-37); Bilirubin,Total < 0.39 MG/DL (0.20-1.00); Blood Urea Nitrogen 65 MG/DL (7-18); Calcium 9.8 MG/DL (8.5-10.1); Carbon Dioxide 28 MMOL/L (21-32); Chloride 100 MMOL/L (98-107); Glucose 99 MG/DL (74-106); Osmolality,Calculated 295.5 MOS/KG (273-304); Potassium 5.3 MMOL/L (3.5-5.1); Sodium 139 MMOL/L (136-145); Total Protein 6.9 G/DL (6.4-8.2)
[2022-08-08] MEDS: INSULIN REGULAR 100 UNIT/ML SUBCUT SCH ×2 (07:51→12:47)
[2022-08-08] MEDS: METOCLOPRAMIDE 5 MG TABLET PO SCH (08:44)
[2022-08-08] MEDS: DEXAMETHASONE 4 MG/1 ML VIAL IV SCH (08:44)
[2022-08-08] MEDS: ASCORBIC ACID 500 MG TABLET PO SCH (08:45)
[2022-08-08] MEDS: SEVELAMER CARBONATE 800 MG TABLET PO SCH ×2 (08:45→12:48)
[2022-08-08] MEDS: ASPIRIN EC 81 MG TABLET PO SCH (08:45)
[2022-08-08] MEDS: PANTOPRAZOLE 40 MG TABLET PO SCH (08:46)
[2022-08-08] MEDS: CHOLECALCIFEROL 1,000 UNIT TABLET PO SCH (08:46)
[2022-08-08] MEDS: CETIRIZINE 10 MG TABLET PO SCH (08:46)
[2022-08-08] MEDS: LOSARTAN 50 MG TABLET PO SCH (08:46)
[2022-08-08] MEDS: DOCUSATE SODIUM 100 MG CAPSULE PO SCH (08:46)
[2022-08-08] MEDS: MIDODRINE 5 MG TABLET PO SCH (08:46)
[2022-08-08] MEDS: ZINC GLUCONATE 50 MG TABLET PO SCH (08:46)
[2022-08-08] MEDS: HEPARIN 5,000 UNIT/1 ML VIAL SUBCUT SCH (08:47)
[2022-08-08 11:57] VITALS: BP 147/73
== END 2022-08-08 18:05 | disposition home health service (06) | DRG 177 ==
LOC: EDBD → EDUNIT# → N.ED 09:56 → SUATTDRO 13:04 → N.EDINP 13:04 → N.5E 15:58 → UNDODISIN 08-08 13:30
PROVIDERS: ADMIT Family Medicine; ATTEND Internal Medicine